=== PATIENT | female | born 1945 | race Caucasian/White ===

== ENCOUNTER 2024-10-24 11:27 | Emergency (ER) | payer MEDICARE, SELFPAY ==
--- NOTE | 2024-10-24 11:28 | XRR_ITS ---
PROCEDURE INFORMATION: Exam: XR Chest Exam date and time: 10/24/2024 11:43 AM Age: 79 years old Clinical indication: Chest pressure; Prior surgery; Surgery date: 6+ months; Surgery type: Lumpectomy; Patient HX: Chest pain; HX breast CA; Ex smoker TECHNIQUE: Imaging protocol: Radiologic exam of the chest. Views: 1 view. COMPARISON: No relevant prior studies available. FINDINGS: Lungs: Unremarkable. No consolidation. Pleural spaces: Unremarkable. No pleural effusion. No pneumothorax. Heart/Mediastinum: Unremarkable. No cardiomegaly. Bones/joints: Unremarkable. XR/XR chest 1V portable [id number] IMPRESSION: No acute findings.
[2024-10-24 11:29] VITALS: BP 179/91; PULSE 67; RESP 16; TEMP 36.5; O2SAT 97; BMI 27.3
--- NOTE | 2024-10-24 11:33 | ECG_ITS ---
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
--- NOTE | 2024-10-24 12:00 | W.ED.CHESTPA ---
HPI - Chest Pain General: Chief Complaint: Chest Pain Stated Complaint: chest pain / after Nitro taken Time Seen by Provider: 10/24/24 11:55 Source: patient Mode of arrival: ambulatory Limitations: no limitations History of Present Illness: 79-year-old female states that she has not been feeling well over the last 2 to 3 days she has been having pain in her arm she woke up this morning having some chest discomfort. States she taken nitro with minimal relief she rates her chest pain a 1 out of 10 currently states she is also had some lightheadedness and dizziness over the last 2 days she denies any slurred speech. Associated symptoms: Deny abdominal pain, dyspnea, fever(s), nausea or vomiting Related Data Allergies Allergy/AdvReac Type Severity Reaction Status Date / Time alirocumab Allergy ADR-Itching Verified 10/24/24 11:49 [From Praluent Pen] amoxicillin [From Augmentin] Allergy ADR-Nausea Verified 10/24/24 11:49 atorvastatin [From Lipitor] Allergy Unknown Verified 10/24/24 11:49 clavulanic acid Allergy ADR-Nausea Verified 10/24/24 11:49 [From Augmentin] codeine Allergy ADR-Nausea Verified 10/24/24 11:49 cortisone Allergy ADR-Itching Verified 10/24/24 11:49 evolocumab Allergy ADR-Itching Verified 10/24/24 11:49 [From Repatha Pushtronex] meloxicam Allergy ADR-Nausea Verified 10/24/24 11:49 NSAIDS (Non-Steroidal Allergy ADR-Nausea Verified 10/24/24 11:49 Anti-Inflamma pregabalin [From Lyrica] Allergy ADR-Nausea Verified 10/24/24 11:49 propoxyphene [From Darvon] Allergy Unknown Verified 10/24/24 11:49 rosuvastatin [From Crestor] Allergy Unknown Verified 10/24/24 11:49 Sulfa (Sulfonamide Allergy ADR-Nausea Verified 10/24/24 11:49 Antibiotics) Review of Systems Const: Denies: fever(s), chills, body aches or change in appetite Eyes: Denies: blurry vision or eye discomfort ENMT: Denies: throat pain or dental pain Card: Reports: chest pain Resp: Denies: dyspnea GI: Denies: abdominal pain, nausea, vomiting or diarrhea Musc: Denies: neck pain or back pain Skin/Breast: Denies: rash Neuro: Denies: headache(s) Physical Exam Const: COMMON NORMALS: no acute distress, patient oriented x3 and healthy appearing HENMT: COMMON NORMALS: normocephalic and atraumatic HEAD & SCALP: normocephalic and atraumatic Eye: COMMON NORMALS: conjunctivae normal CONJUNCTIVA: Yes conjunctivae normal Neck/C-Spine: COMMON NORMALS: full ROM and supple Chest: COMMONS NORMALS: normal inspection of the chest and normal palpation of entire chest wall Resp: COMMON NORMALS: normal respiratory effort, No retractions, No use of accessory muscles and clear to auscultation bilaterally AUSCULTATION: clear to auscultation bilaterally Cardio: COMMON NORMALS: regular rate, regular rhythm and No murmurs present (Cardio) RATE: regular rate RHYTHM: regular rhythm GI: COMMON NORMALS: Normal to inspection, nondistended, normoactive bowel sounds present, Soft to palpation, non-tender and no masses PALPATION: Yes Soft to palpation Extremity: COMMON NORMALS: normal to inspection and full ROM Neuro: COMMON NORMALS: patient oriented x3, moves all extremities and no focal motor deficits Psych: COMMON NORMALS: mental status grossly normal, Normal thought process present and cooperative THOUGHT PROCESS: Normal thought process present Skin: COMMON NORMALS: no rashes or lesions noted and no wounds GENERAL SKIN EXAM: no rashes or lesions noted Course Vital Signs: Vital signs: Vital Signs Temperature 97.7 F 10/24/24 11:29 Pulse Rate 72 10/24/24 15:31 Respiratory Rate 16 10/24/24 11:29 Blood Pressure 118/84 10/24/24 15:31 Pulse Oximetry 97 10/24/24 15:31 Oxygen Delivery Me thod Room Air 10/24/24 11:29 MDM - Chest Pain Medical Decision Making Patient presents here with chest pains atypical in nature she also had some slight headache head CT here is normal troponins are normal patient stable for discharge follow-up PCP return if worsening. Medical Records I reviewed the patient's medical records. Lab Data I reviewed the patient's lab results. 10/24/24 11:46 10/24/24 11:46 Radiology Impressions Chest X-Ray 10/24/24 11:28 IMPRESSION: No acute findings. Head CT 10/24/24 14:34 IMPRESSION: No acute intracranial abnormality. If symptoms persist, consider further evaluation with MRI, if there are no contraindications to obtaining a MRI scan. Laboratory Results WBC 6.35 10^3/uL (3.29-11.43) 10/24/24 11:46 RBC 4.50 10^6/uL (3.85-5.65) 10/24/24 11:46 Hgb 13.00 g/dL (11.27-16.99) 10/24/24 11:46 Hct 41.0 % (36-47) 10/24/24 11:46 MCV 91.1 fl (85-98) 10/24/24 11:46 MCH 28.9 pg (27-33) 10/24/24 11:46 MCHC 31.7 g/dL (30-55) 10/24/24 11:46 RDW 13.9 % (12.1-15.1) 10/24/24 11:46 Plt Count 243 10^3/cmm (157-399) 10/24/24 11:46 MPV 10.2 fL (7.4-10.4) 10/24/24 11:46 Neut % (Auto) 50.4 % 10/24/24 11:46 Lymph % (Auto) 25.2 % 10/24/24 11:46 [place] % (Auto) 6.1 % 10/24/24 11:46 Eos % (Auto) 17.5 % 10/24/24 11:46 Baso % (Auto) 0.5 % 10/24/24 11:46 Neut # (Auto) 3.20 10^3/uL (1.8-7.7) 10/24/24 11:46 Lymph # (Auto) 1.6 10^3/uL (0.8-4.8) 10/24/24 11:46 [place] # (Auto) 0.4 10^3/uL (0.2-0.9) 10/24/24 11:46 Eos # (Auto) 1.1 10^3/uL (0.0-0.8) H 10/24/24 11:46 Baso # (Auto) 0.0 10^3/uL (0.0-0.1) 10/24/24 11:46 Nucleated RBC % (auto) 0 % 10/24/24 11:46 Nucleated RBCs # 0.0 /100WBC 10/24/24 11:46 Sodium 139 mmol/L (136-145) 10/24/24 11:46 Potassium 4.0 mmol/L (3.5-5.1) 10/24/24 11:46 Chloride 97 mmol/L (98-107) L 10/24/24 11:46 Carbon Dioxide 29 mmol/L (22-29) 10/24/24 11:46 Anion Gap 17.0 (5-19) 10/24/24 11:46 BUN 12 mg/dL (8-23) 10/24/24 11:46 Creatinine 0.4 mg/dL (0.5-0.9) L 10/24/24 11:46 GFR Calculation Not Reportable 10/24/24 11:46 Glucose 92 mg/dL (65-115) 10/24/24 11:46 Calculated Osmolality 287 mOsm/kg (285-295) 10/24/24 11:46 Calcium 9.6 mg/dL (8.5-10.5) 10/24/24 11:46 Total Bilirubin 0.5 mg/dL (0.15-1.2) 10/24/24 11:46 AST 14 U/L (0-32) 10/24/24 11:46 ALT 9 U/L (0-33) 10/24/24 11:46 Alkaline Phosphatase 103 U/L (35-105) 10/24/24 11:46 Troponin T Baseline < 6 ng/L (0-10) 10/24/24 11:46 Troponin T 120 Minute 6.00 ng/L (0-10) 10/24/24 13:25 Delta Troponin T 0.44133 ABS# (0-10) 10/24/24 13:25 Total Protein 6.8 g/dL (6.6-8.7) 10/24/24 11:46 Albumin 4.4 g/dL (3.5-5.2) 10/24/24 11:46 Globulin 2.4 g/dL (1.3-4.6) 10/24/24 11:46 Lipase 26 U/L (13-60) 10/24/24 11:46 All radiology interpretation(s) finalized by discharge EKG Data EKG 1: I personally reviewed and interpreted this EKG as follows: EKG interpretation date: 10/24/24 EKG interpretation time: 13:21 Interpretation: nsr hr [address] elevation qrs 82 qtc 425 Discharge Plan Discharge Patient Disposition: Home Clinical Impression: Chest pain Condition: Stable Discharge Orders: Discharge ED (Routine); Ordered 10/24/24 Ordered By: Vasquez Sanders Discharge Diet: Advance as tolerated Discharge Activity: Resume usual activity Patient Instructions: Chest Pain (ED) Coding Level of Care Code ED Bus 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
[2024-10-24] MEDS: aspirin 81 mg Chew Tablet 324 MG PO (12:04)
[2024-10-24 12:06] LABS: Basophils % 0.5 %; Eosinophils # 1.1 10^3/uL (0.0-0.8); Eosinophils % 17.5 %; Lymphocytes # 1.6 10^3/uL (0.8-4.8); Lymphocytes % 25.2 %; Mean Corpuscular HGB Conc 31.7 g/dL (30-55); Mean Corpuscular Hemoglobin 28.9 pg (27-33); Mean Corpuscular Volume 91.1 fl (85-98); Mean Platelet Volume 10.2 fL (7.4-10.4); Monocytes # 0.4 10^3/uL (0.2-0.9); Monocytes % 6.1 %; Neutrophils % 50.4 %; Nucleated Red Blood Cells % 0 %; Platelet Count 243 10^3/cmm (157-399); Red Cell Distribution Width 13.9 % (12.1-15.1); White Blood Count 6.35 10^3/uL (3.29-11.43)
[2024-10-24 12:14] VITALS: BP 159/79; PULSE 64; O2SAT 94
[2024-10-24 12:26] LABS: Troponin(5th) Baseline < 6 ng/L (0-10)
[2024-10-24 12:28] LABS: Alanine Aminotransferase 9 U/L (0-33); Albumin Level 4.4 g/dL (3.5-5.2); Alkaline Phosphatase 103 U/L (35-105); Aspartate Amino Transferase 14 U/L (0-32); Blood Urea Nitrogen 12 mg/dL (8-23); Calcium 9.6 mg/dL (8.5-10.5); Carbon Dioxide 29 mmol/L (22-29); Chloride 97 mmol/L (98-107); Creatinine Clr Calc Pharmacy 47.4402; Globulin 2.4 g/dL (1.3-4.6); Glucose 92 mg/dL (65-115); Lipase 26 U/L (13-60); Osmolality Calculated 287 mOsm/kg (285-295); Sodium 139 mmol/L (136-145); Total Bilirubin 0.5 mg/dL (0.15-1.2); Total Protein 6.8 g/dL (6.6-8.7)
[2024-10-24 13:00] VITALS: BP 202/92; PULSE 65; O2SAT 100
[2024-10-24] MEDS: hyDRALAzine 20 mg/mL INJ 1 mL 10 MG IVP (13:02)
[2024-10-24 13:15] VITALS: PULSE 65; O2SAT 98
--- NOTE | 2024-10-24 13:21 | ECG_ITS ---
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
[2024-10-24 13:59] LABS: Troponin 5 2HR Delta 0.00001 ABS# (0-10)
[2024-10-24] MEDS: meclizine 25 mg tablet 50 MG PO (14:13)
--- NOTE | 2024-10-24 14:34 | CTR_ITS ---
PROCEDURE INFORMATION: Exam: CT Head Without Contrast Exam date and time: 10/24/2024 2:49 PM Age: 79 years old Clinical indication: Pain; Headache not specified; Additional info: HAMMONDS TECHNIQUE: Imaging protocol: Computed tomography of the head without contrast. Radiation optimization: All CT scans at this facility use at least one of these dose optimization techniques: automated exposure control; mA and/or kV adjustment per patient size (includes targeted exams where dose is matched to clinical indication); or iterative reconstruction. COMPARISON: No relevant prior studies available. RADIATION DOSE METRICS: Total DLP (mGy-cm): 983.7 FINDINGS: Brain: No acute intracranial hemorrhage. No confluent lobar infarct. No mass effect. Cerebral ventricles: The ventricles and sulci are normal in size and shape for the patient's stated age. Paranasal sinuses: No fluid levels. Mastoid air cells: Visualized mastoid air cells are well aerated. Bones: No acute calvarial fracture. Soft tissues: Visualized soft tissues are unremarkable. Empty versus partially empty sella. CT/CT head wo con* [id number] IMPRESSION: No acute intracranial abnormality. If symptoms persist, consider further evaluation with MRI, if there are no contraindications to obtaining a MRI scan.
[2024-10-24] MEDS: ketorolac 30 mg/mL INJ IM (15:04)
[2024-10-24 15:31] VITALS: BP 118/84; PULSE 72; O2SAT 97
--- NOTE | 2024-10-26 09:08 | DCPLANNER ---
message [facility] to establish pcp
== END 2024-10-24 15:31 | disposition home or self-care (01) ==
PROVIDERS: Emergency Provider Emergency Medicine
DX: R07.9 Chest pain, unspecified (principal)
CPT/HCPCS: 70450; 71045; 80053; 83690; 84484; 85025; 93005; 96372; 96374; 99285; J0360; J1885; J8597